=== PATIENT | male | born 1940 | race Caucasian/White ===

== ENCOUNTER 2016-09-04 11:06 | Day surgery (SDC) | payer OTHER ==
[~2016-09-04] VITALS: Ht 165.1 cm; Wt 88.0 kg
[2016-09-04 12:55] VITALS: Ht 165.1 cm; Wt 88.0 kg
[2016-09-04 12:56] VITALS: BP 120/74; PULSE 73; RESP 16
[2016-09-04] MEDS ORDERED: blood pressure pill (13:01)
[2016-09-04] MEDS ORDERED: PROPOFOL 20 ML ONE (13:19)
[2016-09-04] MEDS ORDERED: MIDAZOLAM 1 MG/ML 2 ML INJ ONE (13:19)
[2016-09-04] MEDS ORDERED: FENTAnyl 50 MCG/ML VIAL ONE (13:20)
[2016-09-04 14:07] VITALS: BP 118/77; PULSE 79
[2016-09-04 14:30] VITALS: BP 140/90; PULSE 73; RESP 18
--- NOTE | 2016-09-04 17:48 | GILP ---
DATE OF PROCEDURE: 09/04/2016 NAME OF PROCEDURES: Colonoscopy, biopsy and polypectomy. SURGEON: Lor Vargas MD PREOPERATIVE DIAGNOSIS: Screening colonoscopy. POSTOPERATIVE DIAGNOSES 1. Redundant colon and cecum could not be reached. 2. Two transverse colon polyps were removed using the snare and electrocautery. 3. Two small sigmoid colon polyps were biopsied. 4. Diverticulosis of the colon. 5. Internal hemorrhoids. INDICATION FOR THE PROCEDURE: Mr. Paco Morrissey is a 75-year-old male patient who was schedule d for screening colonoscopy. The procedure and possible complications are well explained to the patient, he understood and consen colleen to the procedure. DESCRIPTION OF PROCEDURE: Under the influence of anesthesia, the colonoscope was carefully introduc ed in the rectum and under direct vision, it was advanced to the whole length of the scope. The pat ient had redundant colon and the cecum could not be reached. The patient was noted to have 2 transv erse colon polyps and they were removed using the snare and electrocautery. The patient had 2 small sigmoid colon polyps and they were removed using the biopsy forceps. The patient had internal hemo rrhoids. He also had mild diverticulosis of the colon. He tolerated the procedure very well and there was no complication from the procedure. At the end o f the procedure, he was awake with stable vital signs and he was discharged home to the care of his family. IMPRESSION: Please see postoperative diagnoses. PLAN: 1. Await histopathology report. 2. Barium enema for the evaluation of the proximal part of the colon. 1. The need for next colonoscopy will be dictated after reviewing the biopsy report as well as the barium enema report. Dictated By: LOR TALBOT/KARISHMA Conf#: [id number] DID#: [id number]
== END 2016-09-04 14:21 | disposition home or self-care (01) ==
LOC: GIL 11:06
PROVIDERS: ATTEND Internal Medicine Gastroenterology
DX: Z12.11 Encounter for screening for malignant neoplasm of colon (principal); D12.5 Benign neoplasm of sigmoid colon; D12.3 Benign neoplasm of transverse colon; K57.90 Diverticulosis of intestine, part unspecified, without perforation or abscess without bleeding; K64.8 Other hemorrhoids; I10 Essential (primary) hypertension; E66.9 Obesity, unspecified; Z68.32 Body mass index [BMI] 32.0-32.9, adult
CPT/HCPCS: 45380; 88305; J2250; J3010